=== PATIENT | male | born 1965 | race Caucasian/White ===

== ENCOUNTER 2020-10-02 14:55 | Observation (INO) | payer BC ==
--- NOTE | 2020-10-02 15:00 | ERPHSYRPT ---
- History of Present Illness Time Seen by Provider: 10/02/20 14:59 Source: patient Exam Limitations: no limitations Physician History: This is a 55-year-old white male who is known to be Covid positive based on a positive test that was performed on 08/29/2020. Patient states that his symptoms of weakness, fever, cough and shortness of air have not improved since that time. A chest x-ray was performed last week which showed no acute cardiopulmonary abnormalities. Patient also had a CAT scan of the chest a few weeks ago which showed by basilar Covid 19 like pneumonias. Patient is a patient of Dr. Ashby. Patient was prescribed Z-Manuel, then Keflex, then Augment in. He had been treated as an outpatient with steroids. He had declined treatment with remdesivir earlier. He did receive a single dose of Bamlnivimab infusion approximately 1 month ago. Despite all the above management, the patient's symptoms persist. He cannot catch his breath. Patient arrives by ambulance Timing/Duration: day(s) (Several) Activities at Onset: none Severity of Dyspnea-Max: moderate Severity of Dyspnea-Current: moderate Possible Cause: chronic episodes (In the last month) Associated Symptoms: cough, No chest pain/discomfort Allergies/Adverse Reactions: lamotrigine [From Lamictal] Allergy (Severe, Verified 10/02/20 15:11) THROAT SWELLS Home Medications: Amlodipine Besylate 5 mg PO HS 10/02/20 [History] Amoxicillin/Potassium Clav [Augmentin 500-125 Tablet] 1 tab PO Q12H 10/02/20 [History] OXcarbazepine [Trileptal] 1,200 mg PO BID 10/02/20 [History] Hx Tetanus, Diphtheria Vaccination/Date Given: No Hx Influenza Vaccination/Date Given: No Hx Pneumococcal Vaccination/Date Given: No Travel Risk - International Travel Have you traveled outside of the country in past 3 weeks: No - Coronavirus Screening Are you exhibiting any of the following symptoms?: Yes Symptoms: Cough: New Onset, Shortness of Breath Close contact with a COVID-19 positive Pt in past 14-21 Days: Yes - Review of Systems Constitutional: Fever, Weakness Eyes: No Symptoms Ears, Nose, & Throat: No Symptoms Respiratory: Cough, Dyspnea Cardiac: No Symptoms Abdominal/Gastrointestinal: No Symptoms Genitourinary Symptoms: No Symptoms Musculoskeletal: No Symptoms Skin: No Symptoms Neurological: No Symptoms Psychological: No Symptoms Endocrine: No Symptoms Hematologic/Lymphatic: No Symptoms Immunological/Allergic: No Symptoms All Other Systems: Reviewed and Negative - Past Medical History Pertinent Past Medical History: Yes Neurological History: Epilepsy ENT History: No Pertinent History Cardiac History: No Pertinent History Respiratory History: No Pertinent History Endocrine Medical History: No Pertinent History Musculoskeletal History: No Pertinent History GI Medical History: No Pertinent History History: No Pertinent History Psycho-Social History: No Pertinent History Male Reproductive Disorders: No Pertinent History - Past Surgical History Past Surgical History: Yes Neuro Surgical History: No Pertinent History Cardiac: No Pertinent History Respiratory: No Pertinent History Gastrointestinal: Appendectomy Genitourinary: No Pertinent History Musculoskeletal: No Pertinent History Male Surgical History: No Pertinent History - Social History Smoking Status: Never smoker Exposure to second hand smoke: Yes Drug Use: none Patient Lives Alone: No - Nursing Vital Signs Nursing Vital Signs: Initial Vital Signs Temperature 99.1 F 10/02/20 14:56 Pulse Rate 102 H 10/02/20 14:56 Respiratory Rate 22 10/02/20 14:56 Blood Pressure 177/88 10/02/20 14:56 O2 Sat by Pulse Oximetry 96 10/02/20 14:56 Pain Scale Pain Intensity 0 - Physical Exam General Appearance: mild distress, alert, anxiety Eye Exam: PERRL/EOMI, eyes nml inspection Ears, Nose, Throat Exam: hearing grossly normal, normal ENT inspection Neck Exam: normal inspection, non-tender, supple, full range of motion Respiratory Exam: normal breath sounds, lungs clear, respiratory distress (Mild), airway intact, No chest tenderness Cardiovascular/Chest Exam: normal heart sounds, regular rate/rhythm, normal peripheral pulses Abdominal/Gastrointestinal Exam: soft, normal bowel sounds, No tenderness Rectal Exam: not done Extremity Exam: non-tender, normal range of motion, normal inspection, no calf tenderness, no pedal edema, pelvis stable Neurologic Exam: alert, oriented x 3, cooperative, guidance counselor II-XII nml as tested, normal mood/affect, nml cerebellar function, nml station & gait, sensation nml Skin Exam: normal color, warm, dry Lymphatic Exam: No adenopathy SpO2 Interpretation: normal O2 Delivery: Room Air - Course Nursing assessment & vital signs reviewed: Yes Ordered Tests: Active Orders 24 hr Category Date Time Status EKG-ER Only STAT Care 10/02/20 15:17 Active IV Insertion STAT Care 10/02/20 15:17 Active Isolation, Initiate & Maintain STAT Care 10/02/20 15:17 Active BNP [NT PRO BNP] Stat Lab 10/02/20 16:00 Completed CBC W DIFF Stat Lab 10/02/20 15:17 Completed CMP Stat Lab 10/02/20 15:17 Completed D-DIMER QUANTITATIVE Stat Lab 10/02/20 15:17 Completed INFLUENZA A+B INDY Stat Lab 10/02/20 15:18 Completed [place] Screen Stat Lab 10/02/20 15:30 Completed TROPONIN Q3H Lab 10/02/20 15:30 Completed TROPONIN Q3H Lab 10/02/20 18:30 Ordered TROPONIN Q3H Lab 10/02/20 21:30 Ordered TROPONIN Q3H Lab 10/03/20 00:30 Ordered TROPONIN Q3H Lab 10/03/20 03:30 Ordered Transfer Order Routine Transfer 10/02/20 Ordered Medication Summary Generic Name Dose Route Start Last Admin Trade Name Freq PRN Reason Stop Dose Admin Sodium Chloride 1,000 mls @ 50 mls/hr 10/02/20 15:30 10/02/20 15:29 Sodium Chloride 0.9% 1000 Ml IV 11/01/20 15:29 50 mls/hr .Q20H ENE Administration Discontinued Medications Generic Name Dose Route Start Last Admin Trade Name Freq PRN Reason Stop Dose Admin Dexamethasone Sodium Phosphate 8 mg 10/02/20 15:18 10/02/20 15:28 Decadron 4 Mg Inj IV 10/02/20 15:19 8 mg STAT ONE Administration Dexamethasone Sodium Phosphate Confirm 10/02/20 15:24 Decadron 4 Mg Inj Administered 10/02/20 15:25 Dose 8 mg .ROUTE .[facility] Lab/Rad Data: Laboratory Result Diagrams 10/02/20 15:17 10/02/20 15:17 Laboratory Results 10/02/20 10/02/20 10/02/20 Range/Units 16:00 15:41 15:30 WBC (4.0-10.5) K/mm3 RBC (4.1-5.6) M/mm3 Hgb (12.5-18.0) gm/dl Hct (42-50) % MCV (78-100) fl MCH (26-32) pg MCHC (32-36) g/dl RDW (11.5-14.0) % Plt Count (150-450) K/mm3 MPV (7.5-11.0) fl Gran % (36.0-66.0) % Eos # (Auto) (0-0.5) Absolute Lymphs (auto) (1.0-4.6) Absolute Monos (auto) (0.0-1.3) Lymphocytes % (24.0-44.0) % Monocytes % (0.0-12.0) % Eosinophils % (0.00-5.0) % Basophils % (0.0-0.4) % Absolute Granulocytes (1.4-6.9) Basophils # (0-0.4) D-Dimer (215-500) ng/mL Sodium (137-145) mmol/L Potassium (3.5-5.1) mmol/L Chloride (98-107) mmol/L Carbon Dioxide (22-30) mmol/L Anion Gap (5-15) MEQ/L BUN (9-20) mg/dL Creatinine (0.66-1.25) mg/dL Estimated GFR ML/MIN Glucose (74-106) mg/dL Calcium (8.4-10.2) mg/dL Total Bilirubin (0.2-1.3) mg/dL AST (17-59) U/L ALT (0-50) U/L Alkaline Phosphatase (38-126) U/L Troponin I (0.000-0.034) ng/mL NT-Pro-B Natriuret Pep 116 (0-900) pg/mL Serum Total Protein (6.3-8.2) g/dL Albumin (3.5-5.0) g/dL Urine Color YELLOW (YELLOW) Urine Appearance CLEAR (CLEAR) Urine pH 5.5 (5-6) Ur Specific Pierce >=1.030 (1.005-1.025) POC Urine Protein Conf NEGATIVE (Negative) Urine Ketones TRACE (NEGATIVE) Urine Nitrite NEGATIVE (NEGATIVE) Urine Bilirubin NEGATIVE (NEGATIVE) Urine Urobilinogen 0.2 (0-1) mg/dL Urine Leukocytes NEGATIVE (NEGATIVE) Urine WBC (Auto) NONE (0-5) /HPF Urine RBC (Auto) NONE (0-2) /HPF U Epithel Cells (Auto) NONE (FEW) /HPF Urine Bacteria (Auto) NONE (NEGATIVE) /HPF Urine RBC NEGATIVE (0-5) Tone/ul Urine Mucus (Auto) SLIGHT (NEGATIVE) /HPF Ur Culture Indicated? NO Urine Glucose NEGATIVE (NEGATIVE) mg/dL Monoscreen NEGATIVE (Negative) Influenza Type A Ag (NEGATIVE) Influenza Type B Ag (NEGATIVE) Group A Strep Antibody (NEGATIVE) 10/02/20 10/02/20 10/02/20 Range/Units 15:30 15:18 15:18 WBC (4.0-10.5) K/mm3 RBC (4.1-5.6) M/mm3 Hgb (12.5-18.0) gm/dl Hct (42-50) % MCV (78-100) fl MCH (26-32) pg MCHC (32-36) g/dl RDW (11.5-14.0) % Plt Count (150-450) K/mm3 MPV (7.5-11.0) fl Gran % (36.0-66.0) % Eos # (Auto) (0-0.5) Absolute Lymphs (auto) (1.0-4.6) Absolute Monos (auto) (0.0-1.3) Lymphocytes % (24.0-44.0) % Monocytes % (0.0-12.0) % Eosinophils % (0.00-5.0) % Basophils % (0.0-0.4) % Absolute Granulocytes (1.4-6.9) Basophils # (0-0.4) D-Dimer (215-500) ng/mL Sodium (137-145) mmol/L Potassium (3.5-5.1) mmol/L Chloride (98-107) mmol/L Carbon Dioxide (22-30) mmol/L Anion Gap (5-15) MEQ/L BUN (9-20) mg/dL Creatinine (0.66-1.25) mg/dL Estimated GFR ML/MIN Glucose (74-106) mg/dL Calcium (8.4-10.2) mg/dL Total Bilirubin (0.2-1.3) mg/dL AST (17-59) U/L ALT (0-50) U/L Alkaline Phosphatase (38-126) U/L Troponin I < 0.012 (0.000-0.034) ng/mL NT-Pro-B Natriuret Pep (0-900) pg/mL Serum Total Protein (6.3-8.2) g/dL Albumin (3.5-5.0) g/dL Urine Color (YELLOW) Urine Appearance (CLEAR) Urine pH (5-6) Ur Specific Pierce (1.005-1.025) POC Urine Protein Conf (Negative) Urine Ketones (NEGATIVE) Urine Nitrite (NEGATIVE) Urine Bilirubin (NEGATIVE) Urine Urobilinogen (0-1) mg/dL Urine Leukocytes (NEGATIVE) Urine WBC (Auto) (0-5) /HPF Urine RBC (Auto) (0-2) /HPF U Epithel Cells (Auto) (FEW) /HPF Urine Bacteria (Auto) (NEGATIVE) /HPF Urine RBC (0-5) Tone/ul Urine Mucus (Auto) (NEGATIVE) /HPF Ur Culture Indicated? Urine Glucose (NEGATIVE) mg/dL Monoscreen (Negative) Influenza Type A Ag NEGATIVE (NEGATIVE) Influenza Type B Ag NEGATIVE (NEGATIVE) Group A Strep Antibody NOT DETECTED (NEGATIVE) 10/02/20 10/02/20 10/02/20 Range/Units 15:17 15:17 15:17 WBC 8.4 (4.0-10.5) K/mm3 RBC 4.92 (4.1-5.6) M/mm3 Hgb 14.2 (12.5-18.0) gm/dl Hct 43.0 (42-50) % MCV 87.4 (78-100) fl MCH 28.9 (26-32) pg MCHC 33.0 (32-36) g/dl RDW 13.7 (11.5-14.0) % Plt Count 196 (150-450) K/mm3 MPV 10.5 (7.5-11.0) fl Gran % 73.8 H (36.0-66.0) % Eos # (Auto) 0 (0-0.5) Absolute Lymphs (auto) 1.56 (1.0-4.6) Absolute Monos (auto) 0.64 (0.0-1.3) Lymphocytes % 18.5 L (24.0-44.0) % Monocytes % 7.6 (0.0-12.0) % Eosinophils % 0.0 (0.00-5.0) % Basophils % 0.1 (0.0-0.4) % Absolute Granulocytes 6.21 (1.4-6.9) Basophils # 0.01 (0-0.4) D-Dimer < 215 L (215-500) ng/mL Sodium 138 (137-145) mmol/L Potassium 4.0 (3.5-5.1) mmol/L Chloride 104 (98-107) mmol/L Carbon Dioxide 23 (22-30) mmol/L Anion Gap 13.9 (5-15) MEQ/L BUN 20 (9-20) mg/dL Creatinine 0.75 (0.66-1.25) mg/dL Estimated GFR > 60.0 ML/MIN Glucose 110 H (74-106) mg/dL Calcium 9.5 (8.4-10.2) mg/dL Total Bilirubin 0.40 (0.2-1.3) mg/dL AST 26 (17-59) U/L ALT 18 (0-50) U/L Alkaline Phosphatase 112 (38-126) U/L Troponin I (0.000-0.034) ng/mL NT-Pro-B Natriuret Pep (0-900) pg/mL Serum Total Protein 7.9 (6.3-8.2) g/dL Albumin 4.7 (3.5-5.0) g/dL Urine Color (YELLOW) Urine Appearance (CLEAR) Urine pH (5-6) Ur Specific Pierce (1.005-1.025) POC Urine Protein Conf (Negative) Urine Ketones (NEGATIVE) Urine Nitrite (NEGATIVE) Urine Bilirubin (NEGATIVE) Urine Urobilinogen (0-1) mg/dL Urine Leukocytes (NEGATIVE) Urine WBC (Auto) (0-5) /HPF Urine RBC (Auto) (0-2) /HPF U Epithel Cells (Auto) (FEW) /HPF Urine Bacteria (Auto) (NEGATIVE) /HPF Urine RBC (0-5) Tone/ul Urine Mucus (Auto) (NEGATIVE) /HPF Ur Culture Indicated? Urine Glucose (NEGATIVE) mg/dL Monoscreen (Negative) Influenza Type A Ag (NEGATIVE) Influenza Type B Ag (NEGATIVE) Group A Strep Antibody (NEGATIVE) - Progress Progress: re-examined, unchanged Air Movement: good Progress Note: 10/02/20 18:23 Medical decision making: This patient was diagnosed with Covid 19 infection approximately 1 month ago. His symptoms of shortness of breath fever and cough have persisted. I reviewed this patient and the work-up results with Dr. Stiles. He agrees to admit this patient and we will continue dexamethasone and begin remdesivir therapy. We will have respiratory therapy evaluate this patient and treat accordingly. Blood Culture(s) Obtained: Yes Antibiotics given: No Discussed with : Other (Sukh Stiles) Counseled pt/family regarding: lab results, diagnosis - Departure Departure Disposition: Home Clinical Impression: COVID-19 virus infection, Shortness of breath, Fever Condition: Stable Critical Care Time: No Referrals: KRYSTA ASHBY MD [Primary Care Provider] -
[2020-10-02] MEDS ORDERED: Decadron 4 MG INJ IV ONE (15:18)
[2020-10-02] MEDS ORDERED: Decadron 4 MG INJ ONE (15:24)
[2020-10-02] MEDS ORDERED: Sodium Chloride 0.9% 1000 ML 1,000 ML IV SCH ×2 (15:30→19:27)
[2020-10-02 15:38] LABS: ALBUMIN 4.7 g/dL (3.5-5.0); ALKALINE PHOSPHATASE 112 U/L (38-126); ANION GAP 13.9 MEQ/L (5-15); BLOOD UREA NITROGEN 20 mg/dL (9-20); CHLORIDE 104 mmol/L (98-107); Calcium 9.5 mg/dL (8.4-10.2); Carbon Dioxide 23 mmol/L (22-30); Creatinine 1 0.75 mg/dL (0.66-1.25); EST GLOMERULAR FILTRATION RATE > 60.0 ML/MIN; Glucose 110 mg/dL (74-106); SGOT/AST 26 U/L (17-59); SGPT/ALT 18 U/L (0-50); SODIUM 138 mmol/L (137-145); Total Protein 7.9 g/dL (6.3-8.2)
[2020-10-02 15:39] LABS: Absolute Neutrophil Ct (ANC) 6.21 (1.4-6.9); BASOPHIL % 0.1 % (0.0-0.4); Basophil (Absolute #) 0.01 (0-0.4); Eosinophil (Absolute #) 0 (0-0.5); Hemoglobin 14.2 gm/dl (12.5-18.0); Lymphocyte (Absolute #) 1.56 (1.0-4.6); Lymphocytes % 18.5 % (24.0-44.0); Mean Cell Volume 87.4 fl (78-100); Mean Corpuscular Hemoglobin 28.9 pg (26-32); Mean Platelet Volume 10.5 fl (7.5-11.0); Monocyte (Absolute #) 0.64 (0.0-1.3); Monocytes % 7.6 % (0.0-12.0); Neutrophil % 73.8 % (36.0-66.0); Platelet Count 196 K/mm3 (150-450); Red Blood Count 4.92 M/mm3 (4.1-5.6); Red Cell Distribution Width 13.7 % (11.5-14.0); White Blood Count 8.4 K/mm3 (4.0-10.5)
[2020-10-02 16:19] LABS: INFLUENZA A NEGATIVE (NEGATIVE); INFLUENZA B NEGATIVE (NEGATIVE)
[2020-10-02 16:34] LABS: Appearance CLEAR (CLEAR); Bilirubin NEGATIVE (NEGATIVE); Glucose NEGATIVE (NEGATIVE); Ketones TRACE (NEGATIVE); Nitrite NEGATIVE (NEGATIVE); Protein,Urine Dip NEGATIVE (Negative); RBC NEGATIVE Ery/ul (0-5); Specific Gravity >=1.030 (1.005-1.025); Urobilinogen 0.2 mg/dL (0-1)
[2020-10-02 16:52] LABS: Mucus SLIGHT /HPF (NEGATIVE)
[2020-10-02] MEDS ORDERED: REMDESIVIR 200 MG in Sodium Chloride 0.9% 250 ML 250 ML IV ONE (19:27)
[2020-10-02] MEDS ORDERED: TYLENOL 325 MG PO PRN (19:27)
[2020-10-02] MEDS ORDERED: Zofran 4 MG/2 ML VIAL IV PRN (19:27)
[2020-10-02] MEDS ORDERED: Spiriva 18 Mcg/Cap Inhaler IH ONE (19:53)
[2020-10-02] MEDS: VENTOLIN COMMON CANISTER IH SCH (20:19)
[2020-10-02] MEDS ORDERED: VENTOLIN COMMON CANISTER IH PRN (22:05)
[2020-10-02] MEDS ORDERED: REMDESIVIR IV ONE (22:54)
[2020-10-02] MEDS ORDERED: Sodium Chloride 0.9% 250 ML 250 ML IV ONE (22:54)
[2020-10-03] MEDS ORDERED: Ativan 1 MG PO PRN (01:35)
[2020-10-03 04:43] LABS: Absolute Neutrophil Ct (ANC) 6.87 (1.4-6.9); BASOPHIL % 0.1 % (0.0-0.4); Basophil (Absolute #) 0.01 (0-0.4); Eosinophil (Absolute #) 0 (0-0.5); Hematocrit 40.7 % (42-50); Hemoglobin 13.5 gm/dl (12.5-18.0); Mean Cell Volume 87.3 fl (78-100); Mean Corpuscular Hgb Concent. 33.2 g/dl (32-36); Mean Platelet Volume 10.6 fl (7.5-11.0); Monocyte (Absolute #) 0.51 (0.0-1.3); Monocytes % 5.9 % (0.0-12.0); Platelet Count 198 K/mm3 (150-450); Red Blood Count 4.66 M/mm3 (4.1-5.6); Red Cell Distribution Width 13.7 % (11.5-14.0); White Blood Count 8.7 K/mm3 (4.0-10.5)
[2020-10-03 04:55] LABS: INR 1.17 (0.8-3.0); PROTIME 13.2 SECONDS (8.83-12.87)
[2020-10-03 04:59] LABS: ALBUMIN 4.3 g/dL (3.5-5.0); ALKALINE PHOSPHATASE 99 U/L (38-126); ANION GAP 13.9 MEQ/L (5-15); BLOOD UREA NITROGEN 20 mg/dL (9-20); CHLORIDE 102 mmol/L (98-107); Calcium 9.5 mg/dL (8.4-10.2); Carbon Dioxide 22 mmol/L (22-30); Creatinine 1 0.69 mg/dL (0.66-1.25); EST GLOMERULAR FILTRATION RATE > 60.0 ML/MIN; Glucose 113 mg/dL (74-106); Potassium 4.3 mmol/L (3.5-5.1); SGOT/AST 21 U/L (17-59); SGPT/ALT 17 U/L (0-50); SODIUM 134 mmol/L (137-145)
[2020-10-03 05:37] LABS: D-DIMER QUANTITATIVE < 215 ng/mL (215-500)
[2020-10-03] MEDS: VENTOLIN COMMON CANISTER IH SCH ×2 (06:59→10:36)
[2020-10-03] MEDS ORDERED: Spiriva 18 Mcg/Cap Inhaler IH SCH (10:00)
[2020-10-03] MEDS ORDERED: DECADRON 10MG INJ. IM SCH (10:00)
[2020-10-03 12:00] VITALS: BP 131/71; PULSE 90; O2SAT 93
[2020-10-03] MEDS ORDERED: REMDESIVIR 100 MG in Sodium Chloride 0.9% 100 ML IVPB 100 ML IV SCH (12:00)
[2020-10-03] MEDS ORDERED: NORVASC 5 MG PO SCH (22:00)
[2020-10-03] MEDS ORDERED: Trileptal 300 MG Tablet PO SCH (22:00)
--- NOTE | 2020-10-21 10:20 | SSS ---
DISCHARGE DIAGNOSES: 1) COVID. 2) COVID FATIGUE SYNDROME. CHIEF COMPLAINT: Severe fatigue, shortness of breath, chest heaviness, post-COVID infection. HISTORY OF PRESENT ILLNESS: The patient is a 55 year old white male who had COVID four or five days ago. He went home. His cough had gone away, fever gone away but he is extremely fatigued. The emergency room admitted him for further evaluation. MEDICATIONS: Norvasc 5 q.d., Trileptal 900 q.p.m. for epilepsy. Augmentin q.a.m. which was discontinued due to no obvious side effect or infection. ALLERGIES: LAMOTRIGINE. REVIEW OF SYSTEMS: HEENT: No problems hearing or seeing. CHEST: No shortness of breath except on unusual walking. CVS: No exertional chest pain, palpitations, coronary artery disease. ABDOMEN: No nausea or vomiting. EXTREMITIES: No complaints. PHYSICAL EXAMINATION: VITAL SIGNS: Temperature 98F, pulse 90, respirations 18. HEENT: Pupils equal and reactive to light. NECK: Supple without adenopathy. CHEST: Few crackles. CVS: Heart sounds regular. ABDOMEN: Soft. No masses or organomegaly. LAB DATA AND TESTS: CT of the chest which showed patchy ground-glass opacities scattered typical for COVID pneumonia, hepatic steatosis. CBC and CMP were normal. CT of the chest showed as above, just signs of past COVID. EKG showed sinus rhythm. HOSPITAL COURSE: The patient was observed overnight. He had no hypoxia. We had discussion that this was still the disease although he has not contagious probably. It would take him a month or so to get over the pneumonia that he had. He is to continue on the medications minus the Augmentin which is not indicated. Follow up with his routine doctor in two or three weeks.
== END 2020-10-03 13:35 | disposition home or self-care (01) ==
LOC: ED 14:55 → MED SURG 19:05 → INTOOBSV 19:05 → OBSVTOIN 19:05
PROVIDERS: ADMIT Family Medicine; ATTEND Family Medicine
DX: U07.1 COVID-19 (principal); G93.3 Postviral and related fatigue syndromes; R06.02 Shortness of breath; Z86.19 Personal history of other infectious and parasitic diseases; R50.9 Fever, unspecified; R05 Cough
CPT/HCPCS: 36000; 36415; 80053; 81015; 83880; 84484; 85025; 85379; 85610; 86308; 87400; 87651; 93005; 94640; 94762; 96374; 99285; J1100; A9270-GY